=== PATIENT | male | born 1980 | race Caucasian/White ===

== ENCOUNTER 2019-08-30 10:04 | Emergency (ER) | payer MEDICAID ==
--- NOTE | 2019-08-30 10:10 | NUR ---
no answer in er lobby---seen ambulating away from er by federal appellate clerk
== END 2019-08-30 10:10 | disposition left against medical advice (07) ==
LOC: MED 10:04
DX: Z53.21 Procedure and treatment not carried out due to patient leaving prior to being seen by health care provider (principal)

== ENCOUNTER 2019-11-26 02:02 | Emergency (ER) | payer SELFPAY ==
--- NOTE | 2019-11-26 02:12 | NUR ---
PT DECLINED TO BE TRIAGE. PATIENT LEFT WITHOUT BEING SEEN BY DR. NAGEL. NO FURTHER CARE PROVIDED FOR PATIENT.
== END 2019-11-26 02:12 | disposition left against medical advice (07) ==
LOC: MED 02:02
DX: R03.0 Elevated blood-pressure reading, without diagnosis of hypertension (principal); Z53.21 Procedure and treatment not carried out due to patient leaving prior to being seen by health care provider

== ENCOUNTER 2019-11-27 09:03 | Emergency (ER) | payer SELFPAY ==
[~2019-11-27] VITALS: Ht 180.3 cm; Wt 99.8 kg
--- NOTE | 2019-11-27 09:07 | NUR ---
PT IN RESTROOM
--- NOTE | 2019-11-27 09:19 | NUR ---
PT STILL IN RESTROOM
[2019-11-27 09:32] VITALS: BP 148/88
--- NOTE | 2019-11-27 09:33 | NUR ---
Patient ambulated to bed 11. RN evaluating patient at bedside.
--- NOTE | 2019-11-27 09:35 | NUR ---
PT C/O FEELING DIZZY LAST NIGHT, WANTS TO GET B/P CHECKED. PT STATES HE HAS A PERSONAL ISSUE TO ADDRESS WITH MD ONLY. PT REPORTS HAVING SHARP EPIGASTRIC PAIN AT THIS TIME. DR. OGDEN NOTIFIED. PATIENT STATES PAIN OF 10/10 AT THIS TIME; VSS; PATIENT POSITIONED FOR COMFORT; HOB ELEVATED; BEDRAILS UP X1; BED DOWN. ER MD MADE AWARE OF PT STATUS.
--- NOTE | 2019-11-27 09:41 | NUR ---
Dr. Curtis is evaluating the patient at bedside.
[2019-11-27] MEDS ORDERED: AZITHROMYCIN 250 MG TAB PO ONE (09:45)
[2019-11-27] MEDS ORDERED: cefTRIAXone 250 MG in LIDOCAINE MPF 1% 0.9 ML IM ONE (09:45)
[2019-11-27] MEDS ORDERED: LIDOCAINE MPF 1% 5 ML ONE (09:49)
[2019-11-27] MEDS ORDERED: cefTRIAXone 250 MG VIAL ONE (09:49)
[2019-11-27 10:13] LABS: BASOPHILS # (AUTO) 0.1 K/uL (0.00-0.22); BASOPHILS % (AUTO) 0.5 % (0.0-2.0); EOSINOPHILS # (AUTO) 0.1 K/uL (0-0.4); EOSINOPHILS % (AUTO) 0.5 % (0.0-4.0); HEMATOCRIT 45.5 % (36-52); HEMOGLOBIN 15.5 g/dL (12.0-18.0); LYMPHOCYTES # (AUTO) 1.9 K/uL (2.0-11.5); LYMPHOCYTES % (AUTO) 17.8 % (20.5-51.1); MEAN CORPUSCULAR HEMOGLOBIN 32 pg (27-31); MEAN CORPUSCULAR HGB CONC 34 g/dL (33-37); MEAN CORPUSCULAR VOLUME 94.5 fL (80-94); MONOCYTES # (AUTO) 0.9 K/uL (0.8-1.0); MONOCYTES % (AUTO) 8.2 % (1.7-9.3); NEUTROPHILS # (AUTO) 7.7 K/uL (1.8-7.7); PLATELET COUNT (AUTO) 315 K/uL (140-450); RED BLOOD CELL COUNT(AUTO) 4.82 MIL/uL (4.20-6.10); RED CELL DISTRIBUTION WIDTH 13.1 % (11.6-13.7); WHITE BLOOD COUNT (AUTO) 10.5 K/uL (4.8-10.8)
--- NOTE | 2019-11-27 10:15 | NUR ---
PT STATES HE IS ABLE TO URINATE. TWO CUPS OF WATER PROVIDED.
[2019-11-27 11:15] LABS: ALBUMIN 3.9 g/dL (3.4-5.0); ANION GAP 13.1 (8-16); CARBON DIOXIDE 29.5 mmol/L (21-32); CREATININE 1.1 mg/dL (0.6-1.3); POTASSIUM 3.6 mmol/L (3.5-5.1); TOTAL BILIRUBIN 0.9 mg/dL (0.0-1.0)
--- NOTE | 2019-11-27 11:20 | NUR ---
PT STATES HE IS NOT ABLE TO URINATE AT THIS TIME. Addendum: 11/27/19 at [address] OGDEN NOTIFIED.
[2019-11-27 11:27] VITALS: BP 141/87
--- NOTE | 2019-11-27 11:27 | NUR ---
Patient discharged with v/s stable. Written and verbal after care instructions given and explained. Patient verbalized understanding. Ambulatory with steady gait. All questions addressed prior to discharge. Advised to follow up with PMD.
== END 2019-11-27 11:27 | disposition home or self-care (01) ==
LOC: MED 09:03
DX: R10.11 Right upper quadrant pain (principal); F17.210 Nicotine dependence, cigarettes, uncomplicated; F12.90 Cannabis use, unspecified, uncomplicated
CPT/HCPCS: 36415; 80053; 83690; 85025; 96372; 99283; J0696; J2001

== ENCOUNTER 2020-01-13 01:15 | Emergency (ER) | payer SELFPAY ==
[~2020-01-13] VITALS: Ht 185.4 cm; Wt 91.6 kg
[2020-01-13 01:21] VITALS: BP 143/89
--- NOTE | 2020-01-13 01:31 | NUR ---
DR. OGDEN AT BEDSIDE.
[2020-01-13] MEDS ORDERED: IBUPROFEN 800 MG TAB PO ONE (01:35)
--- NOTE | 2020-01-13 01:42 | NUR ---
XR AT BEDSIDE.
--- NOTE | 2020-01-13 01:50 | NUR ---
39 YO M BIB SELF FOR C/C OF 6/10 SHARP LEFT ANKLE PAIN X1 WEEK THAT WORSENS WITH ACTIVITY. PT STATES OTC PAIN MEDICATIONS ARE NOT RELIEVING HIS PAIN. PT STATES HE BROKE HIS ANKLE ABOUT THREE YEARS AGO AND HAD ORTHOPEDIC SURGERY WHERE THEY PLACED SCREWS AND RODS TO REPAIR HIS ANKLE. PT STATES HIS PAIN IS IN THE SAME PLACE THE SCREWS WERE PLACED. PEDAL PULSES ARE EQUAL AND REGULAR. PT HAS FULL RANGE OF MOTION AT ANKLE JOINT. DENIES FEVER, COUGH, SOB, AND TRAVEL. BED LOCKED AND IN LOWEST POSITION. SIDE RAILS X1. NKA NO MED HX NO RX
[2020-01-13 02:34] VITALS: BP 143/89
== END 2020-01-13 02:34 | disposition home or self-care (01) ==
LOC: MED 01:15
DX: M25.572 Pain in left ankle and joints of left foot (principal)
CPT/HCPCS: 73610; 99283; Q0092

== ENCOUNTER 2020-02-02 11:52 | Emergency (ER) | payer SELFPAY ==
[~2020-02-02] VITALS: Ht 175.3 cm; Wt 90.3 kg
[2020-02-02 12:07] VITALS: BP 127/96
--- NOTE | 2020-02-02 12:21 | NUR ---
39/M C/O LEFT FLANK PAIN X 1 WK. INTERMITTENT POKING SENSATION 6/10 AT THIS TIME. DENIES INJURY. BURNING WITH URINATION. PT STATES UNPROTECTED SEX RECENTLY AND WAS SEEN AT ANOTHER HOSPITAL AND TESTED FOR UNSPECIFIED STI 1 WEEK AGO. NAD AT THIS TIME. HX- DENIES
--- NOTE | 2020-02-02 12:33 | NUR ---
DR. MORATAYA EVALUATING PT AT BEDSIDE
[2020-02-02] MEDS ORDERED: AZITHROMYCIN 250 MG TAB PO ONE (12:35)
[2020-02-02] MEDS ORDERED: KETOROLAC 60 MG/2 ML VIAL IM ONE (12:35)
[2020-02-02] MEDS ORDERED: cefTRIAXone 1,000 MG in LIDOCAINE MPF 1% 2.1 ML IM ONE (12:35)
[2020-02-02] MEDS ORDERED: cefTRIAXone 1,000 MG VIAL ONE (12:46)
[2020-02-02] MEDS ORDERED: LIDOCAINE MPF 1% 5 ML ONE (12:47)
--- NOTE | 2020-02-02 12:56 | NUR ---
PATIENT REFUSED ROCEPHIN IM AND TORADOL IM DUE TO FEAR OF NEEDLES. ALSO REFUSED PO AZITHROMYCIN BECAUSE ANOTHER UNSPECIFIED PO ABX GAVE HIM DIARRHEA. PT STATES HE WANTS TO WAIT FOR STI TEST RESULTS BEFORE TAKING ANY MEDS. DR. MORATAYA NOTIFIED. Addendum: 02/02/20 at 1300 by MNLOLAN STI AND URINE
--- NOTE | 2020-02-02 13:00 | NUR ---
URINE SAMPLE COLLECTED
--- NOTE | 2020-02-02 13:16 | NUR ---
Patient discharged with v/s stable. Written and verbal after care instructions given and explained. Patient alert, oriented and verbalized understanding of instructions. Ambulatory with steady gait. All questions addressed prior to discharge. ID band removed. Patient advised to follow up with PMD. Rx of PYRIDIUM AND DOXYCYCLINE given. Patient educated on indication of medication including possible reaction and side effects. EDUCATED PT TO REFRAIN FROM SEXUAL ACTIVITY UNTIL TEST RESULTS AVAILABLE. Opportunity to ask questions provided and answered.
[2020-02-04 06:08] LABS: CHLAMYDIA TRACHOMATIS AMP DNA Negative (Negative)
== END 2020-02-02 13:16 | disposition home or self-care (01) ==
LOC: MED 11:52
DX: R30.0 Dysuria (principal); F17.210 Nicotine dependence, cigarettes, uncomplicated; N28.89 Other specified disorders of kidney and ureter
CPT/HCPCS: 36415; 81002; 87491; 99283; J0696; J1885; J2001

== ENCOUNTER 2020-04-24 11:28 | Emergency (ER) | payer SELFPAY ==
[~2020-04-24] VITALS: Ht 185.4 cm; Wt 91.4 kg
[2020-04-24 11:33] VITALS: BP 145/90
--- NOTE | 2020-04-24 11:33 | NUR ---
ABSCESS X 3 DAYS. PER PT WAS SEEN IN [facility] AND PRESCRIPTION GIVEN TO TAKE, PER PT NEVER OBTAINED PRESCRIPTION. PT PRESENTS WITH ABSCESS ON RIGHT KNEE, REDNESS AND SLIGHT PUS NOTICED ON CENTER. PT PRESENTS EUPNIC,VSS,AMBULATORY,A/OX4. SIDE RAIL X1. NKA HX NO RX NO
--- NOTE | 2020-04-24 12:09 | NUR ---
ERMD AT BEDSIDE
[2020-04-24 12:21] VITALS: BP 140/85
== END 2020-04-24 12:21 | disposition home or self-care (01) ==
LOC: MED 11:28
DX: L02.415 Cutaneous abscess of right lower limb (principal); F41.9 Anxiety disorder, unspecified; F17.200 Nicotine dependence, unspecified, uncomplicated; Z87.81 Personal history of (healed) traumatic fracture
CPT/HCPCS: 99281

== ENCOUNTER 2020-04-30 22:28 | Emergency (ER) | payer SELFPAY | END 2020-04-30 23:46 | disposition home or self-care (01) | LOC: MED 22:28 | DX: H92.03 Otalgia, bilateral (principal); Z53.21 Procedure and treatment not carried out due to patient leaving prior to being seen by health care provider ==

== ENCOUNTER 2021-11-23 00:22 | Emergency (ER) | payer MEDICAID ==
[~2021-11-23] VITALS: Ht 182.9 cm; Wt 91.2 kg
[2021-11-23 00:41] VITALS: BP 142/92
--- NOTE | 2021-11-23 01:11 | NUR ---
pt taken to bed 08.
--- NOTE | 2021-11-23 01:12 | NUR ---
pt taken to rad.
--- NOTE | 2021-11-23 01:51 | NUR ---
41 Y/O MALE BIB SELF, C/O SOB AND CP X3WKS. PT STATES SYMPTOMS ARE UNPROVOKED AND PT NEEDS TO REMIND HIMSELF TO RELAX IN ORDER FOR SYMPTOMS TO SUBSIDE. DENIES N/V; SKIN IS PINK/WARM/DRY; AAOX4 WITH EVEN AND STEADY GAIT; LUNGS CLEAR BL; HR EVEN AND REGULAR; PT DENIES ANY FEVER, OR COUGH AT THIS TIME; VSS; PATIENT POSITIONED FOR COMFORT; HOB ELEVATED; BEDRAILS UP X1; BED DOWN. ER MD MADE AWARE OF PT STATUS. HX: ANX NKA DENIES MEDS
[2021-11-23] MEDS ORDERED: ALBUTEROL SULFATE/IPRATROPIU 3 ML SOL IH ONE (02:05)
--- NOTE | 2021-11-23 02:17 | NUR ---
RT AT BEDSIDE
--- NOTE | 2021-11-23 02:53 | NUR ---
[employer] CONSULT[employer] AT BEDSIDE
[2021-11-23 03:34] LABS: ANION GAP 8.9 (8-16); CARBON DIOXIDE 32.8 mmol/L (21-32); CREATININE 0.9 mg/dL (0.6-1.3); POTASSIUM 3.7 mmol/L (3.5-5.1)
[2021-11-23 03:42] LABS: BASOPHILS # (AUTO) 0.1 K/uL (0.00-0.22); BASOPHILS % (AUTO) 0.8 % (0.0-2.0); EOSINOPHILS # (AUTO) 0.1 K/uL (0-0.4); EOSINOPHILS % (AUTO) 1.9 % (0.0-4.0); HEMATOCRIT 43.2 % (36-52); HEMOGLOBIN 14.9 g/dL (12.0-18.0); MEAN CORPUSCULAR HEMOGLOBIN 32 pg (27-31); MEAN CORPUSCULAR HGB CONC 35 g/dL (33-37); MEAN CORPUSCULAR VOLUME 92.8 fL (80-94); MONOCYTES # (AUTO) 0.6 K/uL (0.8-1.0); MONOCYTES % (AUTO) 7.7 % (1.7-9.3); NEUTROPHILS # (AUTO) 4.4 K/uL (1.8-7.7); NEUTROPHILS % (AUTO) 61.6 % (42.2-75.2); PLATELET COUNT (AUTO) 342 K/uL (140-450); RED BLOOD CELL COUNT(AUTO) 4.65 MIL/uL (4.20-6.10); RED CELL DISTRIBUTION WIDTH 13.5 % (11.6-13.7); WHITE BLOOD COUNT (AUTO) 7.2 K/uL (4.8-10.8)
[2021-11-23] MEDS ORDERED: ALBU0.0912 IH (04:08)
[2021-11-23 04:30] VITALS: BP 134/84
--- NOTE | 2021-11-23 04:31 | NUR ---
Patient discharged with v/s stable. Written and verbal after care instructions for bronchospasms given and explained. Patient alert, oriented and verbalized understanding of instructions. Ambulatory with steady gait. All questions addressed prior to discharge. ID band removed. Patient advised to follow up with PMD. Rx of Albuterol Sulfate given. Patient educated on indication of medication including possible reaction and side effects. Opportunity to ask questions provided and answered. VSS, A/OX4, AMBULATORY, UNLABORED BREATHING, AND CALM DEMEANOR.
== END 2021-11-23 04:26 | disposition home or self-care (01) ==
LOC: MED 00:22
DX: J98.01 Acute bronchospasm (principal); R09.1 Pleurisy; F17.200 Nicotine dependence, unspecified, uncomplicated; Z79.899 Other long term (current) drug therapy
CPT/HCPCS: 36415; 71045; 80048; 84484; 85025; 93005; 94640; 99285

== ENCOUNTER 2021-12-22 02:29 | Emergency (ER) | payer MEDICAID ==
[~2021-12-22] VITALS: Ht 182.9 cm; Wt 92.1 kg
[~2021-12-22 02:29] MED LIST: ALBU0.0912 IH
[2021-12-22 02:45] VITALS: BP 142/94
--- NOTE | 2021-12-22 02:57 | NUR ---
Patient ambulated to bed 09.
--- NOTE | 2021-12-22 03:05 | NUR ---
WENT TO ASSESS PT, PT STATED "I NEED TO TALK TO THE DOCTOR ABOUT SOMETHING FOR LAB WORK I CAN JUST TALK TO THEM ABOUT IT". PT DENIES HX, RX AND ALLERGIES. UNABLE TO FULLY ASSESS PT.
[2021-12-22] MEDS ORDERED: PENICILLIN G BENZATHINE L-A 1.2 MU/2 ML SYR IM ONE (03:20)
[2021-12-22 04:02] VITALS: BP 142/94
== END 2021-12-22 04:02 | disposition home or self-care (01) ==
LOC: MED 02:29
DX: A53.9 Syphilis, unspecified (principal); Z79.899 Other long term (current) drug therapy
CPT/HCPCS: 96372; 99283; J0561

== ENCOUNTER 2021-12-31 12:18 | Emergency (ER) | payer MEDICAID ==
[~2021-12-31] VITALS: Ht 182.9 cm; Wt 90.7 kg
[2021-12-31 12:21] VITALS: BP 142/94
[2021-12-31] MEDS ORDERED: PENICILLIN G BENZATHINE L-A 1.2 MU/2 ML SYR IM ONE (13:50)
--- NOTE | 2021-12-31 14:23 | NUR ---
41/M PRESENTS TO ED REQUESTING 3RD SYPHILLIS SHOT. STATES HE TESTED POSITIVE FOR SYPHILLIS 2 MONTHS AGO AND HAD HIS FIRST SHOT AT [facility] AND HAD HIS SECOND DOSE HERE AND WAS TOLD TO RETURN FOR HIS THIRD TODAY. DENIES ANY PAIN OR URINARY SYMPTOMS, NO OTHER MEDICAL COMPLAINTS
[2021-12-31 14:32] VITALS: BP 133/97
--- NOTE | 2021-12-31 14:32 | NUR ---
Patient discharged with v/s stable. Written and verbal after care instructions ABOUT SYPHILLIS given and explained. Patient verbalized understanding. Ambulatory with steady gait. All questions addressed prior to discharge. Advised to follow up with PMD.
== END 2021-12-31 14:32 | disposition home or self-care (01) ==
LOC: MED 12:18
DX: A53.9 Syphilis, unspecified (principal); Z79.899 Other long term (current) drug therapy
CPT/HCPCS: 96372; 99283; J0561

== ENCOUNTER 2022-02-24 00:21 | Emergency (ER) | payer MEDICAID ==
[~2022-02-24] VITALS: Ht 182.9 cm; Wt 95.3 kg
[2022-02-24 00:55] VITALS: BP 149/100
[2022-02-24] MEDS ORDERED: BENZONATATE 100 MG CAPLF PO ONE (01:50)
[2022-02-24] MEDS ORDERED: BENZ150C2 PO (03:16)
[2022-02-24] MEDS ORDERED: LORA10TA19 PO (03:16)
[2022-02-24 03:43] VITALS: BP 140/92
== END 2022-02-24 03:44 | disposition home or self-care (01) ==
LOC: MED 00:21
DX: U07.1 COVID-19 (principal); F17.200 Nicotine dependence, unspecified, uncomplicated
CPT/HCPCS: 87081; 99283

== ENCOUNTER 2022-04-20 03:17 | Emergency (ER) | payer MEDICAID ==
[~2022-04-20] VITALS: Ht 182.9 cm; Wt 94.3 kg
[~2022-04-20 03:17] MED LIST changes: +BENZ150C2 PO; +LORA10TA19 PO
[2022-04-20 03:20] VITALS: BP 132/79
[2022-04-20] MEDS ORDERED: NACL 0.9% 1,000 ML IV ONE (04:40)
[2022-04-20 04:47] LABS: APPEARANCE,URINE CLEAR (CLEAR); BILIRUBIN,URINE NEGATIVE (NEGATIVE); BLOOD, URINE NEGATIVE (NEGATIVE); COLOR,URINE YELLOW (YELLOW); LEUKOCYTE ESTERASE ,URINE NEGATIVE (NEGATIVE); NITRITE, URINE NEGATIVE (NEGATIVE); UGLUCOSE NEGATIVE (NEGATIVE)
[2022-04-20 05:00] LABS: RBC,URINE NONE SEEN /HPF (0-5); WBC,URINE 0-5 /HPF (0-5)
[2022-04-20 05:15] LABS: ANION GAP 11.1 (8-16); CARBON DIOXIDE 31.8 mmol/L (21-32); CREATININE 1.3 mg/dL (0.6-1.3); POTASSIUM 3.9 mmol/L (3.5-5.1)
[2022-04-20 05:50] VITALS: BP 128/79
== END 2022-04-20 05:50 | disposition home or self-care (01) ==
LOC: MED 03:17
DX: E86.0 Dehydration (principal); Z79.899 Other long term (current) drug therapy
CPT/HCPCS: 36415; 80048; 81001; 87086; 96360; 99283; J7030